=== PATIENT | female | born 1990 | race African-American/Black ===

== ENCOUNTER 2023-12-25 15:43 | Emergency (ER) | payer BC, SELFPAY ==
--- NOTE | ~2023-12-25 | XR_ITS ---
EXAM: XR hand LT min 3V, XR hand RT min 3V DATE: 12/25/2023 16:58 HISTORY: trauma . COMPARISON: None available. FINDINGS: Normal mineralization. No fracture or dislocation. No lytic or blastic lesion. Joint space s are maintained. No erosion or periosteal change. Soft tissues within normal limits. IMPRESSION: No acute osseous finding in the bilateral hands. Reviewed, dictated and finalized at location K. IMPRESSION: No acute osseous finding in the bilateral hands.
--- NOTE | ~2023-12-25 | XR_ITS ---
EXAM: XR knee LT 3V DATE: 12/25/2023 16:58 HISTORY: trauma . COMPARISON: None available. FINDINGS: Normal mineralization. No fracture or dislocation. No lytic or blastic lesion. Mild medial compartment narrowing. No erosion or periosteal change. Soft tissues within normal limits. IMPRESSION: No acute osseous finding in the left knee. Reviewed, dictated and finalized at location K.
[2023-12-25 15:54] VITALS: BP 140/90; PULSE 89; RESP 14; TEMP 37; O2SAT 97
--- NOTE | 2023-12-25 16:56 | ED.FALL ---
HPI - Fall General Chief Complaint: Fall Stated Complaint: fall Time Seen by Provider: 12/25/23 15:53 History of Present Illness HPI Narrative: 33-year-old female presents emergency department for evaluation after having a ground level fall. Patient reports she was walking down stairs quickly and tripped causing her to fall forward landing on her hands and knees. Patient does have contusions of her fingers and laceration to her left knee. Patient denies striking head denies any loss of consciousness. Related Data Allergies Allergy/AdvReac Type Severity Reaction Status Date / Time No Known Allergies Allergy Verified 12/25/23 15:44 Review of Systems Review of Systems: All systems reviewed & are unremarkable except as noted in HPI and below Exam Narrative: APPEARANCE: Well appearing, no pain, no distress, well-nourished. HEAD: normocephalic, atraumatic. EYES: PERRLA/EOMI, conjunctivae clear. NOSE: Normal no drainage EARS:TMS clear with good light reflex. THROAT: Pharynx clear, no exudate. NECK: Supple. No adenopathy, no masses. RESPIRATORY: Airway patent, respirations nonlabored. Clear to auscultation bilaterally, no rales, rhonchi, wheezing. CARDIOVASCULAR: Regular rate and rhythm without murmurs rubs or gallops. ABDOMINAL: Soft, nontender, nondistended, normal bowel sounds MUSCULOSKELETAL: Contusion to right thenar eminence and left middle finger NEURO: Alert. Cranial nerves II through XII intact. Good gait. Good coordination SKIN: Laceration to left knee Course Vital Signs Vital signs: Vital Signs Temperature 98.6 F 12/25/23 15:54 Pulse Rate 89 12/25/23 15:54 Respiratory Rate 14 12/25/23 15:54 Blood Pressure 140/90 12/25/23 15:54 Pulse Oximetry 97 12/25/23 15:54 Temperature 98.6 F 12/25/23 15:54 Pulse Rate 89 12/25/23 15:54 Respiratory Rate 14 12/25/23 15:54 Blood Pressure 140/90 12/25/23 15:54 Pulse Oximetry 97 12/25/23 15:54 Procedures Laceration Laceration 1: Time: 16:56 Site: lower extremity Side (If applicable): left Size (cm): 3 Description: linear Depth: simple, single layer Amount of anesthesia used (mL): 2 Pre-repair: wound explored, irrigated and irrigated extensively ====== Skin Level ====== Skin layer closed with: nylon Size (cm): 4-0 Number of sutures: 5 Technique: simple, interrupted ====== Subcutaneous Layer ====== ====== Muscle Layer ====== ====== Tendon Layer ====== MDM - Fall MDM Narrative Medical decision making narrative: 33-year-old female present to ED for evaluation for hand pain knee pain after a ground level fall. X-rays were negative for acute fracture dislocation. Laceration was repaired as described in the procedure note. All questions concerns were addressed. Patient was comfortable the plan for discharge and close follow-up. Differential Diagnosis Differential diagnosis: Likely other (Hand fracture, hand contusion, knee contusion, laceration) Imaging Data Radiologist's impression: Impressions Hand X-Ray 12/25/23 17:00 IMPRESSION: No acute osseous finding in the bilateral hands. Hand X-Ray 12/25/23 17:00 IMPRESSION: No acute osseous finding in the bilateral hands. Knee X-Ray 12/25/23 17:00 IMPRESSION: No acute osseous finding in the left knee. Discharge Plan Discharge Clinical Impression: Laceration Patient Disposition: Home, Self-Care Condition: Stable Instructions: Antibiotic Form, Laceration (ED), Abrasion (ED) Additional Instructions: Tylenol and ibuprofen for pain control. Sutures need to be removed in 7-10 days. Antibiotic ointment on abrasions. Have close follow-up with your primary care physician. Follow-up/Referrals: PHYSICIAN,INVOICING MACHINE OPERATOR [Non-Staff] -
== END 2023-12-25 18:07 | disposition home or self-care (01) ==
PROVIDERS: Emergency Provider Emergency Medicine
DX: S81.012A Laceration without foreign body, left knee, initial encounter (principal); S60.032A Contusion of left middle finger without damage to nail, initial encounter; W10.9XXA Fall (on) (from) unspecified stairs and steps, initial encounter
CPT/HCPCS: 12002; 73130; 73562; 99284

== ENCOUNTER 2024-01-12 13:01 | Emergency (ER) | payer BC, SELFPAY ==
[2024-01-12 13:02] VITALS: BP 132/79; PULSE 75; RESP 16; TEMP 37.4; O2SAT 99
--- NOTE | 2024-01-12 14:51 | PC.NURSE ---
PT LWBS, WILL COME BACK IF NEEDED PER THE PT
== END 2024-01-12 15:03 | disposition left against medical advice (07) ==
LOC: ANHED 14:54
DX: O26.891 Other specified pregnancy related conditions, first trimester (principal); R10.9 Unspecified abdominal pain
CPT/HCPCS: 99199

== ENCOUNTER 2024-04-05 03:28 | Emergency (ER) | payer BC, SELFPAY ==
[2024-04-05 03:37] VITALS: O2SAT 100
[2024-04-05 03:41] VITALS: BP 136/83; PULSE 83; RESP 16; O2SAT 100
--- NOTE | 2024-04-05 04:16 | ED_ITS ---
HPI - General Adult General Chief complaint: Head Injury Stated complaint: ground level fall around 2129 Time Seen by Provider: 04/05/24 03:47 History of Present Illness HPI narrative: patient 34-year-old female who presents emergency department with chief complaint of facial laceration. The patient reports that she had a ground level fall today and reports she was seen at this [facility] emergency department patient had a CT scan but did not wait to have her laceration repaired. The patient states that she is back to her baseline neurological status has no more nausea reports she stays have her laceration repaired. Related Data Allergies Allergy/AdvReac Type Severity Reaction Status Date / Time No Known Allergies Allergy Verified 12/25/23 15:44 Review of Systems Review of Systems: A 10 system review of systems was completed on the patient and is negative except for what is stated in the HPI. Nursing and ancillary documentation was reviewed. Exam Narrative: GENERAL: Well-appearing, well-nourished, and in no acute distress. HEAD: Normocephalic, 3 cm laceration to the left eyebrow. EYES: PERRLA and EOMI. ENT: Nares clear, no rhinorrhea or epistaxis. Mucous membranes moist. NECK: Supple. CHEST: Clear to auscultation. No respiratory distress. HEART: Regular rate and rhythm. No murmur heard. Normal peripheral pulses. ABDOMEN: Soft, nontender, nondistended, normal active bowel sounds. EXTREMITIES: Normal range of motion. No edema. SKIN: Warm, dry, no rash. NEURO: No focal deficits. Alert and oriented x3. PSYCH: Normal mood and affect. Course Vital Signs Vital signs: Vital Signs Pulse Oximetry 100 04/05/24 03:37 Oxygen Delivery Room Air 04/05/24 03:37 Pulse Rate 83 04/05/24 03:41 Respiratory Rate 16 04/05/24 03:41 Blood Pressure 136/83 04/05/24 03:41 Pulse Oximetry 100 04/05/24 03:41 Oxygen Delivery Room Air 04/05/24 03:37 Procedures Laceration Laceration 1: Date: 04/05/24 Time: 04:17 Site: face ( left eyebrow) Size (cm): 3 Description: linear Depth: simple, single layer Local Anesthetic: lidocaine 1% and with epi Amount of anesthesia used (mL): 3 Pre-repair: wound explored and irrigated ====== Skin Level ====== Skin layer closed with: prolene Size (cm): 5-0 Number of sutures: 5 Technique: simple, interrupted ====== Subcutaneous Layer ====== ====== Muscle Layer ====== ====== Tendon Layer ====== Medical Decision Making MDM Narrative Medical decision making narrative: differential diagnosis includes head injury, facial laceration. Patient is currently and heart tones were within normal limits. The patient had a CT head done had a outlying facility the laceration was repaired Vital Signs Vital Signs: Vital Signs Pulse Oximetry 100 04/05/24 03:37 Oxygen Delivery Room Air 04/05/24 03:37 Pulse Rate 83 04/05/24 03:41 Respiratory Rate 16 04/05/24 03:41 Blood Pressure 136/83 04/05/24 03:41 Pulse Oximetry 100 04/05/24 03:41 Oxygen Delivery Room Air 04/05/24 03:37 Discharge Plan Discharge Clinical Impression: Face lacerations, Head injury Patient Disposition: Home, Self-Care Condition: Stable Instructions: Antibiotic Form, Care For Your Stitches (ED), Head Injury (ED), Facial Laceration (ED) Additional Instructions: please have the sutures removed in 5-7 days please return if you develop signs of infection Follow-up/Referrals: Talon Bain MD [Physician] - UNKNOWN,DOCTOR [Primary Care Provider] - Time of Disposition: 04:20
== END 2024-04-05 04:42 | disposition home or self-care (01) ==
PROVIDERS: Emergency Provider Emergency Medicine
DX: O9A.212 Injury, poisoning and certain other consequences of external causes complicating pregnancy, second trimester (principal); S01.112A Laceration without foreign body of left eyelid and periocular area, initial encounter; Z3A.18 18 weeks gestation of pregnancy; W18.30XA Fall on same level, unspecified, initial encounter
CPT/HCPCS: 12013; 99283; J2004

== ENCOUNTER 2024-07-05 11:26 | Observation (INO) | payer BC, SELFPAY ==
[2024-07-05] VITALS (8 sets, daily range): BP systolic 108–151; BP diastolic 56–108; PULSE 54–91; RESP 19; O2SAT 100; BMI 38.5
--- NOTE | ~2024-07-05 | US_ITS ---
EXAMINATION: US abdomen limited DATE: 07/05/2024 13:11 INDICATION: Right upper quadrant abdominal pain, nausea and vomiting. TECHNIQUE: Multiple grayscale and Doppler ultrasound images of the abdomen were obtained. COMPARISON: None FINDINGS: The pancreatic head and body are normal in appearance. The pancreatic tail is not visualized. Visual ized proximal to mid inferior vena cava is normal. Liver has normal echogenicity and contour, with a smooth surface. No liver lesion identified. No intrahepatic biliary duct dilation suspected. Portal v enous flow was seen in the hepatopetal, normal direction and has normal Doppler waveform. Multiple sh adowing gallstones in the dependent aspect of the otherwise normal-appearing gallbladder. Common bile duct is normal measuring 4 mm in maximal diameter. Sonographic Copeland sign was reported as negative by the senior civil engineer.Visualized portion of the right kidney demonstrates normal contour and echogenicit y with no hydronephrosis. IMPRESSION: 1. Cholelithiasis without evident biliary obstruction or findings of acute cholecystitis. Reviewed, dictated and finalized at location A. T LEAD IMPRESSION: 1. Cholelithiasis without evident biliary obstruction or findings of acute chol ecystitis.
--- OUTSIDE RECORDS SUMMARY | 2024-07-05 11:29 | XMS_ITS | Clinical Summary ---
Author Organization [facility] [employer] Address [address] [place] [address] Care Team Providers Care Manager Pipeline Name Role Phone Unavailable Primary Care Provider Unavailabl e Source Comments [facility],non-owned Affiliates and Associated Physician Practices is amultiple site organization consisting of ambulatory clinics and hospital sitesin [place], [place], [place] and [place]. This disclosure is being madepursuant to the Care Everywhere program and may not contain all information available regarding this patient. Last updated 18.SL [facility] [place] Allergies No known active allergies Encounters Date Type Department Care Team Description 04/04/2024 11:24 PM STOREPERSON - 04/05/2024 5:01 AM STOREPERSON Emergency [facility] [address] [place] [id number] Fall, initial encounter Discharge Disposition: Left Against Medical Advice/Discontinued Care 04/04/2024 Travel from Last 3 Months Social History Tobacco Use Types Packs/Day Years Used Date Smoking Tobacco: Never Assessed Sex and Gender Information Value Date Recorded Sex Assigned at Not on file Gender Identity Not on file Sexual Orientation Not on file Last Filed Vital Signs Vital Sign Reading Time Taken Comments Blood Pressure 132/101 04/04/2024 11:26 PM STOREPERSON Pulse 106 04/04/2024 11:26 PM STOREPERSON Temperature 36.7 C (98 F) 04/04/2024 11:26 PM STOREPERSON Respiratory Rate 22 04/04/2024 11:26 PM STOREPERSON Oxygen Saturation 97% 04/04/2024 11:26 PM STOREPERSON Inhaled Oxygen Concentration - - Weight 115.7 kg (255 lb) 04/04/2024 11:26 PM STOREPERSON Height 172.7 cm (5' 8 ) 04/04/2024 11:26 PM STOREPERSON Body Mass Index 38.77 04/04/2024 11:26 PM STOREPERSON Plan of Treatment Health Maintenance Due Date Last Done Comments PAP SMEAR 1991 HIV SCREENING 2006 HEPATITIS C SCREENING 03/04/2009 DTAP/TDAP/TD VACCINES (1 - Tdap) 2010 HEPATITIS B VACCINE (1 of 3 - 19+ 3-dose series) 2010 COVID-19 VACCINE (1 - 2023-2 5 season) 2024 INFLUENZA VACCINE (#1) 2024 DEPRESSION SCREENING 05/21/2024 ZOSTER VACCINE (1 of 2) 2041 HIB VACCINE Aged Out No longer eligi ble based on patient's age to complete this topic HPV VACCINE Aged Out No longer eligi ble based on patient's age to complete this topic MENINGOCOCCAL (Group B) VACCINE Aged Out No longer eligible based on patient's age to complete this topic MENINGOCOCCAL VACCINE Aged Out No basilio elizabeth eligible based on patient's age to complete this topic PNEUMOCOCCAL VACCINE Aged Out No long er eligible based on patient's age to complete this topic Procedures Procedure Name Priority Date/Time Associated Diagnosis Comments CT ORBITS WO CONTRAST STAT 04/05/2024 1:54 AM STOREPERSON Fall, initial encounter CT HEAD WO CONTRAST STAT 04/05/2024 1 :54 AM STOREPERSON Fall, initial encounter COMPREHENSIVE METABOLIC PANEL STAT 04/05/2024 12:13 AM STOREPERSON CBC W AUTO DIFFERENTIAL STAT 04/05/2024 12:13 AM STOREPERSON HCG URINE QUALITATIVE STAT 04/05/2024 12:13 AM STOREPERSON from Last 3 Months Results * CT Orbits Wo Contrast (04/05/2024 1:54 AM STOREPERSON) Anatomical Region Laterality Modality Head Computed Tomogra phy 04/05/2024 2:06 AM STOREPERSON Impressions 04/05/2024 7:24 AM STOREPERSON IMPRESSION: 1.Proptotic globes bilaterally. No orbital fracture or retrobulbar hematoma is identified. > Dictated by Andre Garcia, DO (residential director). Lorena Garcia MD have personally reviewed and interpreted this examination/study. > Interpreting Provider: Lorena Cantu MD on 04/05/2024 7:24 AM Narrative 04/05/2024 7:24 AM STOREPERSON EXAMINATION: CT ORBITS WO CONTRAST DATE/TIME OF EXAM: 04/05/2024 1:55 AM, LOCATION [facility] HISTORY: W19.XXXA: Fall, initial encounter ?orbit fracture, vision change (20/50 in left eye with laceration, fall) COMPARISON: No prior study is available for comparison. FINDINGS: Mildly proptotic globes bilaterally. No orbital fracture is identified. No retrobulbar hematoma. No radiodense foreign bodies are identified in the orbits. There is mild paranasal sinus disease. There is a mucous retention cyst in the left maxillary sinus. The nasal septum is mildly limited to the right. No acute fracture of the visualized facial bones. The middle ear cavities and mastoid air cells are clear. No soft tissue abnormality is identified. Procedure Note Lorena Cantu MD - 04/05/2024 EXAMINATION: CT ORBITS WO CONTRAST DATE/TIME OF EXAM: 04/05/2024 1:55 AM, LOCATION [facility] HISTORY: W19.XXXA: Fall, initial encounter ?orbit fracture, visionchange (20/50 in left eye with laceration, fall) COMPARISON: No prior study is available for comparison. FINDINGS: Mildly proptotic globes bilaterally. No orbital fracture is identified.No retrobulbar hematoma. No radiodense foreign bodies are identified in the orbits. There is mild paranasal sinus disease. There is a mucousretention cyst in the left maxillary sinus. The nasal septum is mildly limited tothe right. No acute fracture of the visualized facial bones. The middle ear cavities and mastoid air cells are clear. No soft tissue abnormality is identified. IMPRESSION: 1.Proptotic globes bilaterally. No orbital fracture or retrobulbarhematoma is identified. > Dictated by Andre Garcia DO (residential director). Lorena Garcia MD have personally reviewed and interpretedthis examination/study. > Interpreting Provider: Lorena Cantu MD on 04/05/2024 7:24 AM Qiana Martin MD CT ORDERABLES * CT Head Wo Contrast (04/05/2024 1:54 AM STOREPERSON) Anatomical Region Laterality Modality Head Computed Tomogra phy 04/05/2024 1:57 AM STOREPERSON Impressions 04/05/2024 7:22 AM STOREPERSON IMPRESSION: 1.No acute intracranial hemorrhage, midline shift, or significant mass effect. > Dictated by Andre Garcia DO (Newspaper Photographer), 04/05/2024 2:05 AM. ILorena MD have personally reviewed and interpreted this examination/study. > Interpreting Provider: Lorena Cantu MD on 04/05/2024 7:22 AM Narrative 04/05/2024 7:22 AM STOREPERSON PROCEDURE: CT HEAD WO CONTRAST, DATE/TIME OF EXAM: 04/05/2024 1:55 AM, LOCATION [facility] INDICATION: W19.XXXA: Fall, initial encounter EXAMINATION: Computed tomography (CT) of the head without contrast ADDITIONAL CLINICAL INFORMATION: Ordering Provider Reason For Exam: ?ICH TECHNIQUE: CT of the head was performed without contrast according to standard protocol. CT dose reduction technique was used, including Automated Exposure Control. COMPARISON: No prior study is available for comparison at the time of this dictation. FINDINGS: No acute intra- or extra-axial fluid collections are identified. Subjective minimal prominence of the ventricles. The ventricles are otherwise normal in shape and morphology. The basilar cisterns are patent. No mass effect or midline shift is seen. The garcia-white matter differentiation is normal. No acute calvarial fracture is identified. The orbits appear normal. The paranasal sinuses are clear. The mastoid air cells are clear. No soft tissue abnormality is identified. Brain injury guidelines: Skull fracture: No Subdural hematoma: No subdural hematoma. Epidural hematoma: No epidural hematoma. Intraparenchymal hemorrhage: No intraparenchymal hemorrhage. Subarachnoid hemorrhage: No subarachnoid hemorrhage. Intraventricular hemorrhage: No. Midline shift: No. Procedure Note Lorena Cantu MD - 04/05/2024 PROCEDURE: CT HEAD WO CONTRAST, DATE/TIME OF EXAM: 04/05/2024 1:55 AM, LOCATION [facility] INDICATION: W19.XXXA: Fall, initial encounter EXAMINATION: Computed tomography (CT) of the head without contrast ADDITIONAL CLINICAL INFORMATION: Ordering Provider Reason For Exam: ?ICH TECHNIQUE: CT of the head was performed without contrast according to standard protocol. CT dose reduction technique was used, including Automated Exposure Control. COMPARISON: No prior study is available for comparison at the time ofthis dictation. FINDINGS: No acute intra- or extra-axial fluid collections are identified.Subjective minimal prominence of the ventricles. The ventricles are otherwisenormal in shape and morphology. The basilar cisterns are patent. No mass effector midline shift is seen. The garcia-white matter differentiation is normal.No acute calvarial fracture is identified. The orbits appear normal. The paranasal sinuses are clear. The mastoid air cells are clear. No soft tissue abnormality is identified. Brain injury guidelines: Skull fracture: No Subdural hematoma: No subdural hematoma. Epidural hematoma: No epidural hematoma. Intraparenchymal hemorrhage: No intraparenchymal hemorrhage. Subarachnoid hemorrhage: No subarachnoid hemorrhage. Intraventricular hemorrhage: No. Midline shift: No. IMPRESSION: 1.No acute intracranial hemorrhage, midline shift, or significant mass effect. > Dictated by Andre Garcia DO (Newspaper Photographer), 04/05/2024 2:05AM. ILorena MD have personally reviewed and interpretedthis examination/study. > Interpreting Provider: Lorena Cantu MD on 04/05/2024 7:22 AM Qiana Martin MD CT ORDERABLES * (ABNORMAL) HCG URINE QUALITATIVE (04/05/2024 12:13 AM STOREPERSON) Test Urine Positive(A ) Negative 04/05/2024 12:29 AM STOREPERSON [facility] Urine URINE / Unknown Collection / Unknown 04/05/2024 12:13 AM STOREPERSON 04/05/2024 12:19 AM STOREPERSON Tong Castaneda MD LAB - URINALYSIS ORD ERABLES [facility] [address] [place] [address] [phone] * (ABNORMAL) CBC W AUTO DIFFERENTIAL (04/05/2024 12:13 AM [facility]) WBC 11.8(H) 4.0 - 10.7 x10E9/L 04/05/2024 12:29 AM [facility] RBC Count 3.86(L) 3.90 - 5.20 x10E12/L 04/05/2024 12:29 AM [facility] Hemoglobin 10.8(L) 11.9 - 15.8 g/dL 04/05/2024 12:29 AM [facility] Hematocrit 32.0(L) 34.8 - 46.1 % 04/05/2024 12:29 AM [facility] MCV 82.9 80.0 - 98.0 fL 04/05/2024 12:29 AM [facility] MCH 28.0 26.7 - 33.6 pg 04/05/2024 12:29 AM [facility] MCHC 33.8 31.7 - 36.3 g/dL 04/05/2024 12:29 AM [facility] RDW-CV 13.1 11.3 - 14.8 % 04/05/2024 12:29 AM [facility] Platelet Count 406 150 - 420 x10E9/L 04/05/2024 12:29 AM [facility] MPV 9.0 7.8 - 11.4 fL 04/05/2024 12:29 AM [facility] Neutrophil % 72.1 41.0 - 74.0 % 04/05/2024 12:29 AM [facility] Lymphocyte % 18.0 17.0 - 47.0 % 04/05/2024 12:29 AM [facility] Monocyte % 8.1 3.0 - 11.0 % 04/05/2024 12:29 AM [facility] Eosinophil % 1.1 0.0 - 7.0 % 04/05/2024 12:29 AM [facility] Basophil % 0.3 0.0 - 1.6 % 04/05/2024 12:29 AM [facility] Immature Granulocytes % 0.4 0.0 - 1.0 % 04/05/2024 12:29 AM [facility] Neutrophil Absolute 8.52(H) 1.60 - 7.50 x10E9/L 04/05/2024 12:29 AM [facility] Lymphocyte Absolute 2.12 1.00 - 4.40 x10E9/L 04/05/2024 12:29 AM [facility] Monocyte Absolute 0.95 0.15 - 1.00 x10E9/L 04/05/2024 12:29 AM [facility] Eosinophil Absolute 0.13 0.00 - 0.60 x10E9/L 04/05/2024 12:29 AM [facility] Basophil Absolute 0.03 0.00 - 0.13 x10E9/L 04/05/2024 12:29 AM [facility] Blood BLOOD SPECIMEN / Unknown Venipuncture / Unknown 04/05/2024 12:13 AM [facility] 04/05/2024 12:21 AM [facility] Tong Castaneda MD LAB - HEMATOLOGY ORD ERABLES [facility] [address] [place] [id number], [facility] [phone] * (ABNORMAL) COMPREHENSIVE METABOLIC PANEL (04/05/2024 12:13 AM [facility]) BUN 6(L) 7 - 26 mg/dL 04/05/2024 12:48 AM [facility] Creatinine 0.59 0.56 - 0.96 mg/dL 04/05/2024 12:48 AM [facility] Sodium 138 136 - 145 mmol/L 04/05/2024 12:48 AM [facility] Potassium 3.6 3.5 - 4.5 mmol/L 04/05/2024 12:48 AM [facility] Chloride 107 98 - 107 mmol/L 04/05/2024 12:48 AM [facility] CO2 23 22 - 29 mmol/L 04/05/2024 12:48 AM [facility] Glucose 89 70 - 99 mg/dL 04/05/2024 12:48 AM [facility] Calcium 9.3 8.4 - 10.2 mg/dL 04/05/2024 12:48 AM [facility] Protein Total 7.5 6.0 - 8.3 g/dL 04/05/2024 12:48 AM [facility] Albumin 3.4 3.4 - 5.0 g/dL 04/05/2024 12:48 AM [facility] Bilirubin Total 0.2 0.2 - 1.2 mg/dL 04/05/2024 12:48 AM [facility] Alkaline Phosphatase 61 40 - 150 U/L 04/05/2024 12:48 AM [facility] ALT 21 5 - 55 U/L 04/05/2024 12:48 AM [facility] AST 18 5 - 34 U/L 04/05/2024 12:48 AM [facility] Anion Gap 8 6 - 16 04/05/2024 12:48 AM [facility] BUN/Creatinine Ratio 10 7 - 23 04/05/2024 12:48 AM [facility] Osmolality Calculated 283 275 - 295 mOsm/kg 04/05/2024 12:48 AM [facility] Albumin/Globulin Ratio 0.8(L) 1.1 - 2.3 04/05/2024 12:48 AM [facility] eGFR by CKD-EPI >90 >=90 mL/min/1.7 3 m2 04/05/2024 12:48 AM [facility] Blood BLOOD SPECIMEN / Unknown Venipuncture / Unknown 04/05/2024 12:13 AM [facility] 04/05/2024 12:21 AM [facility] Tong Castaneda MD LAB - CHEMISTRY ORDE SHAR[facility] Organization Address City/State/ZIP Co de Phone Number [facility] [address] [place] [address], [facility] [phone] from [address] [place] [address] Melissa Menendez Personal/Family Self 1990
--- OUTSIDE RECORDS SUMMARY | 2024-07-05 11:29 | XMS_ITS | Patient Health Summary ---
Author Organization [facility] [employer] Address [address] [place] [address] Care Team Providers Care Client Leader Name Role Phone Unavailable Primary Care Provider Unavailabl e Note from [facility],non-owned Affiliates and Associated Physician Practices is amultiple site organization consisting of ambulatory clinics and hospital sitesin [place], [place], [place] and [place]. This disclosure is being madepursuant to the Care Everywhere program and may not contain all information available regarding this patient. Last updated 18.[facility] Allergies No known active allergies Social History Tobacco Use Types Packs/Day Years Used Date Smoking Tobacco: Never Assessed Sex and Gender Information Value Date Recorded Sex Assigned at Not on file Gender Identity Not on file Sexual Orientation Not on file Last Filed Vital Signs Vital Sign Reading Time Taken Comments Blood Pressure 132/101 04/04/2024 11:26 PM [employer] Pulse 106 04/04/2024 11:26 PM [employer] Temperature 36.7 C (98 F) 04/04/2024 11:26 PM [employer] Respiratory Rate 22 04/04/2024 11:26 PM [employer] Oxygen Saturation 97% 04/04/2024 11:26 PM [employer] Inhaled Oxygen Concentration - - Weight 115.7 kg (255 lb) 04/04/2024 11:26 PM [employer] Height 172.7 cm (5' 8 ) 04/04/2024 11:26 PM [employer] Body Mass Index 38.77 04/04/2024 11:26 PM [employer] Procedures * CT ORBITS WO CONTRAST(Performed 04/05/2024) Performed for Fall, initial encounter * CT HEAD WO CONTRAST(Performed 04/05/2024) Performed for Fall, initial encounter * COMPREHENSIVE METABOLIC PANEL(Performed 04/05/2024) * CBC W AUTO DIFFERENTIAL(Performed 04/05/2024) * HCG URINE QUALITATIVE(Performed 04/05/2024) Results * CT Orbits Wo Contrast (04/05/2024 1:54 AM [facility]) Anatomical Region Laterality Modality Head Computed Tomogra phy 04/05/2024 2:06 AM [employer] Impressions 04/05/2024 7:24 AM [employer] IMPRESSION: 1.Proptotic globes bilaterally. No orbital fracture or retrobulbar hematoma is identified. > Dictated by Andre Garcia DO (residential aide). ILorena MD have personally reviewed and interpreted this examination/study. > Interpreting Provider: Lorena Cantu MD on 04/05/2024 7:24 AM Narrative 04/05/2024 7:24 AM [employer] EXAMINATION: CT ORBITS WO CONTRAST DATE/TIME OF EXAM: 04/05/2024 1:55 AM, LOCATION [facility] HISTORY: W19.XXXA: Fall, initial encounter ?orbit fracture, [...] DATE/TIME OF EXAM: 04/05/2024 1:55 AM, LOCATION [facility] HISTORY: W19.XXXA: Fall, initial encounter ?orbit fracture, [...] > Dictated by Andre Garcia DO (residential aide). Lorena Garcia MD have personally reviewed and interpretedthis examination/study. > Interpreting Provider: Lorena Cantu MD on 04/05/2024 7:24 AM Qiana Martin MD CT ORDERABLES * CT Head Wo Contrast (04/05/2024 1:54 AM [employer]) Anatomical Region Laterality Modality Head Computed Tomogra phy 04/05/2024 1:57 AM [employer] Impressions 04/05/2024 7:22 AM [employer] IMPRESSION: 1.No acute intracranial hemorrhage, midline shift, or significant mass effect. > Dictated by Andre Garcia DO (Manganese Breaker), 04/05/2024 2:05 AM. Lorena Garcia MD have personally reviewed and interpreted this examination/study. > Interpreting Provider: Lorena Cantu MD on 04/05/2024 7:22 AM Narrative 04/05/2024 7:22 AM [employer] PROCEDURE: CT HEAD WO CONTRAST, DATE/TIME OF EXAM: 04/05/2024 1:55 AM, LOCATION [facility] INDICATION: W19.XXXA: Fall, initial encounter EXAMINATION: Computed [...] DATE/TIME OF EXAM: 04/05/2024 1:55 AM, LOCATION [facility] INDICATION: W19.XXXA: Fall, initial encounter EXAMINATION: Computed [...] effect. > Dictated by Andre Garcia DO (Manganese Breaker), 04/05/2024 2:05AM. Lorena Garcia MD have personally reviewed and interpretedthis examination/study. > Interpreting Provider: Lorena Cantu MD on 04/05/2024 7:22 AM Qiana Martin MD CT ORDERABLES * (ABNORMAL) HCG URINE QUALITATIVE (04/05/2024 12:13 AM [employer]) Test Urine Positive(A ) Negative 04/05/2024 12:29 AM [facility] Urine URINE / Unknown Collection / Unknown 04/05/2024 12:13 AM [facility] [facility] 04/05/2024 12:19 AM [employer] Tong Castaneda MD LAB - URINALYSIS ORD ERABLES [facility] [address] [place] [address], [facility] [phone] * (ABNORMAL) CBC W AUTO DIFFERENTIAL (04/05/2024 12:13 AM [facility]) Pathologist [facility] WBC 11.8(H) 4.0 - 10.7 x10E9/L 04/05/2024 12:29 AM [facility] RBC Count 3.86(L) 3.90 - 5.20 x10E12/L 04/05/2024 12:29 AM [facility] Hemoglobin 10.8(L) 11.9 - 15.8 g/dL 04/05/2024 12:29 AM [facility] Hematocrit 32.0(L) 34.8 - 46.1 % 04/05/2024 12:29 AM [facility] MCV 82.9 80.0 - 98.0 fL 04/05/2024 12:29 AM [facility] MCH 28.0 26.7 - 33.6 pg 04/05/2024 12:29 AM [facility] MCHC 33.8 31.7 - 36.3 g/dL 04/05/2024 12:29 AM [facility] RDW-CV 13.1 11.3 - 14.8 % 04/05/2024 12:29 AM [facility] Platelet Count 406 150 - 420 x10E9/L 04/05/2024 12:29 AM [facility] MPV 9.0 7.8 - 11.4 fL 04/05/2024 12:29 AM [facility] Neutrophil % 72.1 41.0 - 74.0 % 04/05/2024 12:29 AM [facility] Lymphocyte % 18.0 17.0 - 47.0 % 04/05/2024 12:29 AM [facility] Monocyte % 8.1 3.0 - 11.0 % 04/05/2024 12:29 AM [facility] Eosinophil % 1.1 0.0 - 7.0 % 04/05/2024 12:29 AM [facility] Basophil % 0.3 0.0 - 1.6 % 04/05/2024 12:29 AM [facility] Immature Granulocytes % 0.4 0.0 - 1.0 % 04/05/2024 12:29 AM [facility] Neutrophil Absolute 8.52(H) 1.60 - 7.50 x10E9/L 04/05/2024 12:29 AM [facility] Lymphocyte Absolute 2.12 1.00 - 4.40 x10E9/L 04/05/2024 12:29 AM [facility] Monocyte Absolute 0.95 0.15 - 1.00 x10E9/L 04/05/2024 12:29 AM [facility] Eosinophil Absolute 0.13 0.00 - 0.60 x10E9/L 04/05/2024 12:29 AM [facility] Basophil Absolute 0.03 0.00 - 0.13 x10E9/L 04/05/2024 12:29 AM [facility] Blood BLOOD SPECIMEN / Unknown Venipuncture / Unknown 04/05/2024 12:13 AM [facility] 04/05/2024 12:21 AM [facility] Tong Castaneda MD LAB - HEMATOLOGY ORD ERABLES [facility] [address] [place] [id number], [facility] [phone] * (ABNORMAL) COMPREHENSIVE METABOLIC PANEL (04/05/2024 12:13 AM [facility]) BUN 6(L) 7 - 26 mg/dL 04/05/2024 12:48 AM [facility] Creatinine 0.59 0.56 - 0.96 mg/dL 04/05/2024 12:48 AM [facility] Sodium 138 136 - 145 mmol/L 04/05/2024 12:48 AM [facility] Potassium 3.6 3.5 - 4.5 mmol/L 04/05/2024 12:48 AM [facility] Chloride 107 98 - 107 mmol/L 04/05/2024 12:48 AM [facility] CO2 23 22 - 29 mmol/L 04/05/2024 12:48 AM [facility] Glucose 89 70 - 99 mg/dL 04/05/2024 12:48 AM [facility] Calcium 9.3 8.4 - 10.2 mg/dL 04/05/2024 12:48 AM [facility] Protein Total 7.5 6.0 - 8.3 g/dL 04/05/2024 12:48 AM [facility] Albumin 3.4 3.4 - 5.0 g/dL 04/05/2024 12:48 AM [facility] Bilirubin Total 0.2 0.2 - 1.2 mg/dL 04/05/2024 12:48 AM [facility] Alkaline Phosphatase 61 40 - 150 U/L 04/05/2024 12:48 AM [facility] ALT 21 5 - 55 U/L 04/05/2024 12:48 AM [facility] AST 18 5 - 34 U/L 04/05/2024 12:48 AM [facility] Anion Gap 8 6 - 16 04/05/2024 12:48 AM [facility] BUN/Creatinine Ratio 10 7 - 23 04/05/2024 12:48 AM [facility] Osmolality Calculated 283 275 - 295 mOsm/kg 04/05/2024 12:48 AM [facility] Albumin/Globulin Ratio 0.8(L) 1.1 - 2.3 04/05/2024 12:48 AM [facility] eGFR by CKD-EPI >90 >=90 mL/min/1.7 3 m2 04/05/2024 12:48 AM [facility] Blood BLOOD SPECIMEN / Unknown Venipuncture / Unknown 04/05/2024 12:13 AM [facility] [facility] 04/05/2024 12:21 AM [facility] Tong Castaneda MD LAB - CHEMISTRY [facility] Organization Address City/State/ZIP Co de Phone Number [address] [address], [facility] [phone]
--- OUTSIDE RECORDS SUMMARY | 2024-07-05 11:29 | XMS_ITS | Clinical Summary ---
Author Organization [facility] [address] Address [address] [place] [address] Care Team Providers Care Flash Welding Machine Operator Name Role Phone Unknown, Notinfile Primary Care Provider Unavail able Allergies Active Allergy Reactions Criticality Noted Date Comments Sertraline Other (See comments) Low 02/15/2021 Negative thoughts Active Problems Problem Noted Date Diagnosed Date Supervision of other normal , antepartu m 01/16/2024 Overview (01/16/2024): -migraines -essential HTN (elevated Bps in clinic setting) -anxiety/depression-buspar -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 Expectant management: [] Mode of delivery: [] For C/S bottle of CHG 4% and hand out provided @ 36wks Teaching: [] 1st visit [] 28-30 week [] 36 week Bilateral low back pain without sciatica 023 Overview (01/16/2024): Noticed more the last few months. Pain in the middle of her lower back bilaterally. Feels like it shoots across her back from one side to the other, does not shoot down legs. She knows that her increase in weight could be contributing. No tenderness at SI joints. Has not tried anything for it yet. Gave Care of the Back Book today and recommended gently stretching exercises. Okay to use heat and Tylenol, ibuprofen as long as limited use and not . Consider PT if not improving over the next month. Elevated BP without diagnosis of hypertension Overview (01/16/2024): 06/06/2023: Blood pressure is still in the 130s/70s even on recheck today. Denies any headaches, vision changes, chest pain, shortness for breath, palpitations, edema. Discussed that we would recommend starting a blood pressure medication as she has had more than 2 blood pressures at separate appointments which have been elevated in clinic. She states she has had difficulty picking up her blood pressure machine at [facility], so sent a new blood pressure machine in today. Discussed that home blood pressures tend to be the most accurate as some people can be anxious when in the clinic setting, and are more relaxed at home. She discusses that she does feel less stressed and more calm after finishing school and moving. However, she has not been able to work on diet and weight loss as much she has wanted. She would like the opportunity to work on some of these things 1st, then return and if blood pressures are still consistently in the 130s/80s would be willing to start medication. They are currently trying to conceive so would need to start medication that is safe for . Return in 4 weeks for blood pressure check. 05/08/2023 : Blood pressure is elevated today in clinic but she recognizes she is anxious for this visit with the PAP. She was not able to worm picker the BP cuff previously but is now done with school so will plan to pick it up this week. They are still in the process of moving to [facility] the middle of May but states she will likely continue care at [facility]. She will bring repeat blood pressures to appointment in about 3 weeks to evaluate. Will also work on diet and weight loss. If consistently above 130s/80s will start BP medication. Blood pressure is elevated today in clinic and remained slightly elevated even on recheck. Discussed with patient that she is had multiple stressors in the last 2 months and she recognizes that these can raise her blood pressure. Discussed that NSAIDs like ibuprofen can also raise blood pressure. Blood pressure monitor for home prescribed to [employer], and instructions given to take blood pressure at the same time of day for the next few weeks. Patient will bring these into next appointment and if consistently 130/80 or higher we will discuss starting blood pressure medication. Morbid obesity due to excess calories 09/22/2022 Overview (01/16/2024): Wt Readings from Last 6 Encounters: 06/05/23 116.8 kg (257 lb 6.4 oz) 05/08/23 117.2 kg (258 lb 6.4 oz) 04/10/23 116 kg (255 lb 12.8 oz) 12/28/22 109.8 kg (242 lb) 09/22/22 111.1 kg (245 lb) 08/28/22 109.8 kg (242 lb) Given education on diet and exercise. Discussed including good proteins and fats with meals to help keep her full longer. Reviewed basics of Mediterranean diet. Moderate episode of recurrent major depressive d isorder 07/31/2022 Overview (01/16/2024): patient does not feel sad. However she does have feelings of lack of interest. She reports feeling tired and fatigued, reports psychomotor agitation, has sleep disturbances and appetite disturbances. She denies any suicidal, homicidal ideations. Given lack of interest, anhedonia, diagnosis of depression is apparent. Treatment with SSRI will help with anxiety and depression management. Marijuana abuse 05/09/2022 Lumbar degenerative disc disease 02/21/2021 Generalized anxiety disorder 02/01/2021 Overview (01/16/2024): Update. 12/28/2022 : She reports that after using Lexapro 10 mg, her anxiety has become worse. She does not want to use this medication. We will switch her over to buspirone and see how she responds Update. July 31. Patient reports 10% improvement after starting 5 mg of Lexapro. No side effects reported. Keeping this in mind, will advise her to increase the dose to 10 mg daily. Additionally, referral to psychiatry has been placed. Has been having difficulty controlling her anger. Anxiety screening as below. Uses marijuana to self medicate. Recently got a pet dog. That seems to help as a emotional support animal. Given the positive screening below, will initiate treatment with Lexapro and see how she responds. 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 Wanted tested herself but never has had breakout. Discussed positive result. Will not treat at this point. Comments Yes Immunizations Name Administration Dates Next Due DTaP 10/14/1996,09/10/1992 Hep B, Adolescent or Pediatric 03/04/1997,1996,03/12/1995 Hib (PRP-T) 07/02/1992,1991,1991 ,1991 MMR 10/14/1996,07/02/1992 Meningococcal MCV4P (Menactra) 12/21/2004 OPV 10/14/1996, 3,1991,1991,0 1991 TD Preservative Free 12/21/2004 Tdap 04/04/2022 Social History Tobacco Use Types Packs/Day Years Used Date Smoking Tobacco: Never Assessed Personal Safety Answer Date Recorded Have you ever been in or are you currently in a harmful physical or emotional relationship or is someone making you feel afraid or unsafe? Denies 12/18/2023 Comments Yes Sex and Gender Information Value Date Recorded Sex Assigned at Not on file Legal Sex Female 3:51 PM CDT Gender Identity Not on file Sexual Orientation Not on file Obstetrics History Para Term AB IAB SAB Ectopic Multiple Livin g Live Births 3 2 1 1 Date Outcome GA Total Labor Labor/2nd/3rd Weight Sex Type Anes PTL Melissa A1 A5 Name Clin 10/2016 IAB 07/2023 SAB Current Summary Episode Dates Number of Fetuses Estimated Date of Delivery 01/16/2024 - Present (07/05/2024) Unknown Dating Summary Based On BETTIE [place] Diff Last Menstrual Period on 12/01/2023 09/06/2024 Last Filed Vital Signs Vital Sign Reading Time Taken Comments Blood Pressure 150/110 12/18/2023 1:30 PM CDT Pulse 76 12/18/2023 1:30 PM CDT Temperature 37.3 C (99.1 F) 12/18/2023 12:19 PM CDT Respiratory Rate 20 12/18/2023 1:30 PM CDT Oxygen Saturation 99% 12/18/2023 1:30 PM CDT Inhaled Oxygen Concentration - - Weight 111.8 kg (246 lb 7.6 oz) 024 12:19 PM CDT Height 172.7 cm (5' 8 ) 11/19/2023 12:5 9 PM CDT Body Mass Index 37.48 11/19/2023 12:59 PM CDT Plan of Treatment Health Maintenance Due Date Last Done Comments Cervical Cancer Screening 1991 Depression Screening 1991 Hepatitis C Screening 1991 Varicella Vaccines (1 of 2 - 13+ 2-dose series) 2004 Regular Well Visit/Exam 18-64 2009 Influenza Vaccine (#1) 2024 DTaP/Tdap/Td Vaccine (4 - Td or Tdap) 04/04/2032 04/04/2022, 12/21/2004, 10/14/1996, Additional history exists Hepatitis B Screening Completed 03/04/1997 , 10/14/1996, 03/12/1995 HPV Vaccines Aged Out No longer eligi ble based on patient's age to complete this topic Pneumococcal vaccine <65 Aged Out No longer eligible based on patient's age to complete [place] [address] [facility] [place] [address] [facility] Care Teams Flash Welding Machine Operator Relationship Specialty Start Date End Date Unknown, Notinfile PCP - General 10/18/23
--- OUTSIDE RECORDS SUMMARY | 2024-07-05 11:29 | XMS_ITS | Referral Summary ---
Author Organization [facility] [address] Address [address] 5th [place] [address] Care Team Providers Care Global Human Resources Director Name Role Phone Unknown, Notinfile Primary Care [...] picking up her blood pressure machine at [facility], so sent a new blood pressure machine [...] the PAP. She was not able to pickle processor the BP cuff previously but is now done with school so will plan to pick it up this week. They are still in the process of moving to [facility] the middle of May but states she will likely continue care at [facility]. She will bring repeat blood pressures to [...] Blood pressure monitor for home prescribed to [employer], and instructions given to take blood pressure [...] 11/19/2023 12:59 PM CDT Plan of Treatment [place] [address] [facility] [employer] [facility] Member Subscriber Plan / Payer (Ef fective 2023-Present) Name:Melissa Menendez Relation to Subscriber:Self Name:Melissa Menendez Payer ID:[id number] (NAIC) Type: [employer]record Address: [address] [facility] [employer] [facility] [employer] [facility] Care Teams Global Human Resources Director Relationship Specialty Start Date End Date Unknown, Notinfile PCP - General 10/18/23
--- OUTSIDE RECORDS SUMMARY | 2024-07-05 11:29 | XMS_ITS | Referral Summary ---
Author Organization [facility] Address [address] [place] [address] Care Team Providers Care Transfer Controller Name Role Phone Unavailable Primary Care Provider Unavailabl e Source Comments [facility],non-owned Affiliates and Associated Physician Practices is amultiple site organization consisting of ambulatory clinics and hospital sitesin [place]. This disclosure is being madepursuant to the Care Everywhere program and may not contain all information available regarding this patient. Last updated 18.[facility] Packet Design Encounters Date Type Department Care Team Description 04/04/2024 11:24 PM CLIENT ADVISOR - 04/05/2024 5:01 AM CLIENT ADVISOR Emergency [facility] EMERGENCY DEPARTMENT [address] [place] [id number] Fall, initial encounter Discharge Disposition: Left Against Medical Advice/Discontinued Care 04/04/2024 Travel from Last 3 Months Allergies No known active allergies Social History Tobacco Use Types Packs/Day Years Used Date Smoking Tobacco: Never Assessed Sex and Gender Information Value Date Recorded Sex Assigned at Not on file Gender Identity Not on file Sexual Orientation Not on file Last Filed Vital Signs Vital Sign Reading Time Taken Comments Blood Pressure 132/101 04/04/2024 11:26 PM CLIENT ADVISOR Pulse 106 04/04/2024 11:26 PM CLIENT ADVISOR Temperature 36.7 C (98 F) 04/04/2024 11:26 PM CLIENT ADVISOR Respiratory Rate 22 04/04/2024 11:26 PM CLIENT ADVISOR Oxygen Saturation 97% 04/04/2024 11:26 PM CLIENT ADVISOR Inhaled Oxygen Concentration - - Weight 115.7 kg (255 lb) 04/04/2024 11:26 PM CLIENT ADVISOR Height 172.7 cm (5' 8 ) 04/04/2024 11:26 PM CLIENT ADVISOR Body Mass Index 38.77 04/04/2024 11:26 PM CLIENT ADVISOR Plan of Treatment Not on file Procedures Procedure Name Priority Date/Time Associated Diagnosis Comments CT ORBITS WO CONTRAST STAT 04/05/2024 1:54 AM CLIENT ADVISOR Fall, initial encounter CT HEAD WO CONTRAST STAT 04/05/2024 1 :54 AM CLIENT ADVISOR Fall, initial encounter COMPREHENSIVE METABOLIC PANEL STAT 04/05/2024 12:13 AM CLIENT ADVISOR CBC W AUTO DIFFERENTIAL STAT 04/05/2024 12:13 AM CLIENT ADVISOR HCG URINE QUALITATIVE STAT 04/05/2024 12:13 AM CLIENT ADVISOR from Last 3 Months Results * CT Orbits Wo Contrast (04/05/2024 1:54 AM CLIENT ADVISOR) Anatomical Region Laterality Modality Head Computed Tomogra phy 04/05/2024 2:06 AM CLIENT ADVISOR Impressions 04/05/2024 7:24 AM CLIENT ADVISOR IMPRESSION: 1.Proptotic globes bilaterally. No orbital fracture or retrobulbar hematoma is identified. > Dictated by Andre Garcia DO (regional vice president surgical sales). ILorena MD have personally reviewed and interpreted this examination/study. > Interpreting Provider: Lorena Cantu MD on 04/05/2024 7:24 AM Narrative 04/05/2024 7:24 AM CLIENT ADVISOR EXAMINATION: CT ORBITS WO CONTRAST DATE/TIME OF EXAM: 04/05/2024 1:55 AM, LOCATION [facility] HISTORY: W19.XXXA: Fall, initial encounter ?orbit fracture, [...] DATE/TIME OF EXAM: 04/05/2024 1:55 AM, LOCATION [facility] HISTORY: W19.XXXA: Fall, initial encounter ?orbit fracture, [...] identified. > Dictated by Andre Garcia DO (regional vice president surgical sales). Lorena Garcia MD have personally reviewed and interpretedthis examination/study. > Interpreting Provider: Lorena Cantu MD on 04/05/2024 7:24 AM Qiana Martin MD CT ORDERABLES * CT Head Wo Contrast (04/05/2024 1:54 AM CLIENT ADVISOR) Anatomical Region Laterality Modality Head Computed Tomogra phy 04/05/2024 1:57 AM CLIENT ADVISOR Impressions 04/05/2024 7:22 AM CLIENT ADVISOR IMPRESSION: 1.No acute intracranial hemorrhage, midline shift, or significant mass effect. > Dictated by Andre Garcia DO (Padding Machine Operator), 04/05/2024 2:05 AM. Lorena Garcia MD have personally reviewed and interpreted this examination/study. > Interpreting Provider: Lorena Cantu MD on 04/05/2024 7:22 AM Narrative 04/05/2024 7:22 AM CLIENT ADVISOR PROCEDURE: CT HEAD WO CONTRAST, DATE/TIME OF EXAM: 04/05/2024 1:55 AM, LOCATION [facility] INDICATION: W19.XXXA: Fall, initial encounter EXAMINATION: Computed [...] DATE/TIME OF EXAM: 04/05/2024 1:55 AM, LOCATION [facility] INDICATION: W19.XXXA: Fall, initial encounter EXAMINATION: Computed [...] effect. > Dictated by Andre Garcia DO (Padding Machine Operator), 04/05/2024 2:05AM. I, Lorena Cantu MD have personally reviewed and interpretedthis examination/study. > Interpreting Provider: Lorena Cantu MD on 04/05/2024 7:22 AM Qiana Martin MD CT ORDERABLES * (ABNORMAL) HCG URINE QUALITATIVE (04/05/2024 12:13 AM CLIENT ADVISOR) [facility] Test Urine Positive(A ) Negative 04/05/2024 12:29 AM [facility] Urine URINE / Unknown Collection / Unknown 04/05/2024 12:13 AM CLIENT ADVISOR 04/05/2024 12:19 AM CLIENT ADVISOR Tong Castaneda MD LAB - URINALYSIS ORD ERABLES [facility] [address] [place] [id number] [phone] * (ABNORMAL) CBC W AUTO DIFFERENTIAL (04/05/2024 12:13 AM CLIENT ADVISOR) [facility] WBC 11.8(H) 4.0 - 10.7 x10E9/L 04/05/2024 12:29 AM [facility] RBC Count 3.86(L) 3.90 - 5.20 x10E12/L 04/05/2024 12:29 AM [facility] Hemoglobin 10.8(L) 11.9 - 15.8 g/dL 04/05/2024 12:29 AM [facility] Hematocrit 32.0(L) 34.8 - 46.1 % 04/05/2024 12:29 AM [facility] MCV 82.9 80.0 - 98.0 fL 04/05/2024 12:29 AM [facility] MCH 28.0 26.7 - 33.6 pg 04/05/2024 12:29 AM [facility] MCHC 33.8 31.7 - 36.3 g/dL 04/05/2024 12:29 AM [facility] RDW-CV 13.1 11.3 - 14.8 % 04/05/2024 12:29 AM [facility] Platelet Count 406 150 - 420 x10E9/L 04/05/2024 12:29 AM [facility] MPV 9.0 7.8 - 11.4 fL 04/05/2024 12:29 AM [facility] Neutrophil % 72.1 41.0 - 74.0 % 04/05/2024 12:29 AM [facility] Lymphocyte % 18.0 17.0 - 47.0 % 04/05/2024 12:29 AM [facility] Monocyte % 8.1 3.0 - 11.0 % 04/05/2024 12:29 AM [facility] Eosinophil % 1.1 0.0 - 7.0 % 04/05/2024 12:29 AM [facility] Basophil % 0.3 0.0 - 1.6 % 04/05/2024 12:29 AM [facility] Immature Granulocytes % 0.4 0.0 - 1.0 % 04/05/2024 12:29 AM [facility] Neutrophil Absolute 8.52(H) 1.60 - 7.50 x10E9/L 04/05/2024 12:29 AM [facility] Lymphocyte Absolute 2.12 1.00 - 4.40 x10E9/L 04/05/2024 12:29 AM [facility] Monocyte Absolute 0.95 0.15 - 1.00 x10E9/L 04/05/2024 12:29 AM [facility] Eosinophil Absolute 0.13 0.00 - 0.60 x10E9/L 04/05/2024 12:29 AM [facility] Basophil Absolute 0.03 0.00 - 0.13 x10E9/L 04/05/2024 12:29 AM [facility] Blood BLOOD SPECIMEN / Unknown Venipuncture / Unknown 04/05/2024 12:13 AM [facility] 04/05/2024 12:21 AM CLIENT ADVISOR Tong Castaneda MD LAB - HEMATOLOGY ORD ERABLES [facility] [address] [place] [address], [facility] [phone] * (ABNORMAL) COMPREHENSIVE METABOLIC PANEL (04/05/2024 12:13 AM [facility]) BUN 6(L) 7 - 26 mg/dL 04/05/2024 12:48 AM [facility] Creatinine 0.59 0.56 - 0.96 mg/dL 04/05/2024 12:48 AM [facility] Sodium 138 136 - 145 mmol/L 04/05/2024 12:48 AM [facility] Potassium 3.6 3.5 - 4.5 mmol/L 04/05/2024 12:48 AM [facility] Chloride 107 98 - 107 mmol/L 04/05/2024 12:48 AM [facility] CO2 23 22 - 29 mmol/L 04/05/2024 12:48 AM [facility] Glucose 89 70 - 99 mg/dL 04/05/2024 12:48 AM [facility] Calcium 9.3 8.4 - 10.2 mg/dL 04/05/2024 12:48 AM [facility] Protein Total 7.5 6.0 - 8.3 g/dL 04/05/2024 12:48 AM [facility] Albumin 3.4 3.4 - 5.0 g/dL 04/05/2024 12:48 AM [facility] Bilirubin Total 0.2 0.2 - 1.2 mg/dL 04/05/2024 12:48 AM [facility] Alkaline Phosphatase 61 40 - 150 U/L 04/05/2024 12:48 AM [facility] ALT 21 5 - 55 U/L 04/05/2024 12:48 AM [facility] AST 18 5 - 34 U/L 04/05/2024 12:48 AM [facility] Anion Gap 8 6 - 16 04/05/2024 12:48 AM [facility] BUN/Creatinine Ratio 10 7 - 23 04/05/2024 12:48 AM [facility] Osmolality Calculated 283 275 - 295 mOsm/kg 04/05/2024 12:48 AM [facility] Albumin/Globulin Ratio 0.8(L) 1.1 - 2.3 04/05/2024 12:48 AM [facility] eGFR by CKD-EPI >90 >=90 mL/min/1.7 3 m2 04/05/2024 12:48 AM [facility] Blood BLOOD SPECIMEN / Unknown Venipuncture / Unknown 04/05/2024 12:13 AM CLIENT ADVISOR 04/05/2024 12:21 AM [facility] Tong Castaneda MD LAB - CHEMISTRY AUBREY TABOR [facility] [address] [place] [address], [facility] [phone] from Last [address] [place] [address] Melissa Menendez Personal/Family Self 1990
--- NOTE | 2024-07-05 11:32 | PC.NURSE ---
Spoke with Rosemarie in OB who states they will come over to monitor baby.
--- NOTE | 2024-07-05 11:40 | ED_ITS ---
HPI - General Adult General Chief complaint: Abdominal Pain Stated complaint: abd pain, vomiting is 7 months Time Seen by Provider: 07/05/24 11:35 History of Present Illness HPI narrative: 34-year-old female presents emergency department for evaluation for worsening abdominal pain. Patient is approximately 7 months . Patient was recently told she does have influenza. Patient reports approximately 30 minutes ago she had intense worsening lower and mid abdominal pain. Patient denies any vaginal bleeding denies any loss of vaginal fluid. Patient is and distress upon arrival to the emergency department secondary to her abdominal pain. Labs were ordered IV was established. Related Data Allergies Allergy/AdvReac Type Severity Reaction Status Date / Time No Known Allergies Allergy Verified 12/25/23 15:44 Review of Systems 2 Review of Systems: All systems reviewed & are unremarkable except as noted in HPI and below Exam 2 Narrative: APPEARANCE: Uncomfortable secondary to pain HEAD: normocephalic, atraumatic. EYES: PERRLA/EOMI, conjunctivae clear. NOSE: Normal no drainage EARS:TMS clear with good light reflex. THROAT: Pharynx clear, no exudate. NECK: Supple. No adenopathy, no masses. RESPIRATORY: Airway patent, respirations nonlabored. Clear to auscultation bilaterally, no rales, rhonchi, wheezing. CARDIOVASCULAR: Regular rate and rhythm without murmurs rubs or gallops. ABDOMINAL: Gravid abdomen with tenderness to palpable uterus. MUSCULOSKELETAL: Moves all extremities. Strength/ROM intact, No edema, No calf tenderness. NEURO: Alert. Cranial nerves II through XII intact. Good gait. Good coordination SKIN: Warm, dry. Normal Color Course Vital Signs Vital signs: Vital Signs Pulse Rate 91 07/05/24 11:41 Respiratory Rate 07/05/24 11:41 Blood Pressure 151/108 H 07/05/24 11:41 Pulse Oximetry 100 07/05/24 11:41 Pulse Rate 62 07/05/24 16:44 Respiratory Rate 19 07/05/24 11:41 Blood Pressure 120/66 07/05/24 16:44 Pulse Oximetry 100 07/05/24 11:41 Medical Decision Making MDM Narrative Medical decision making narrative: 34-year-old female that is some leuks present presented emergency department for evaluation for urine cramping and abdominal pain. Patient will be transferred to OB [facility]. Patient family were updated on the plan for IV labs and transfer over to OB, all questions concerns were addressed. Vital Signs Vital Signs: Vital Signs Pulse Rate 91 07/05/24 11:41 Respiratory Rate 19 07/05/24 11:41 Blood Pressure 151/108 H 07/05/24 11:41 Pulse Oximetry 100 07/05/24 11:41 Pulse Rate 62 07/05/24 16:44 Respiratory Rate 19 07/05/24 11:41 Blood Pressure 120/66 07/05/24 16:44 Pulse Oximetry 100 07/05/24 11:41 Lab Data 07/05/24 11:42 07/05/24 11:42 Labs: Lab Results 07/05/24 Range/Units 11:42 WBC 11.8 H (4.5-10.0) K/mm3 RBC 3.78 L (4.2-5.4) M/mm3 Hgb 10.7 L (12.0-15.0) g/dL Hct 31.4 L (37.0-47.0) % MCV 83.1 (80-100) fl MCH 28.3 (26-34) pg MCHC 34.1 (32-36) g/dl RDW 13.4 (11.5-14.5) % Plt Count 422 H (150-375) k/mm3 MPV 9.0 (7.4-10.4) fl Immature Gran % (Auto) 0.6 H (0-0.5) % Neut % (Auto) 77.8 H (45.5-73.1) % Lymph % (Auto) 11.9 L (18.3-44.2) % [place] % (Auto) 9.3 H (2.6-8.5) % Eos % (Auto) 0.1 (0-4.4) % Baso % (Auto) 0.3 (0.2-1.2) % Lymph # (Auto) 1.40 (0.9-3.2) K/mm3 [place] # (Auto) 1.1 H (0.1-0.6) K/mm3 Eos # (Auto) 0.0 (0-0.3) K/mm3 Baso # (Auto) 0.0 (0.0-0.1) K/mm3 Abs Immat Gran (auto) 0.07 H (0.00-0.031) K/mm3 Absolute Neuts (auto) 9.2 H (1.3-6.7) K/mm3 Absolute Nucleated RBC 0.000 (0.0-0.012) K/mm3 Nucleated RBC % 0.0 (0.0-0.2) % PT 13.6 (11.1-14.7) Seconds INR 1.0 APTT 27.1 (22.3-36.8) Seconds Sodium 136 L (137-145) mmol/L Potassium 3.1 L (3.4-5.0) mmol/L Chloride 103 (98-107) mmol/L Carbon Dioxide 22 (22-30) mmol/L Anion Gap 11 (4-12) mmol/L BUN 6 L (7-17) mg/dL Creatinine 0.43 L (0.7-1.0) mg/dL Estim Creat Clear Calc 203 ml/min Estimated GFR > 60 (59 - ) Glucose 98 (65-110) mg/dL Calcium 9.5 (8.4-10.2) mg/dL Total Bilirubin 1.1 (0.2-1.3) mg/dL AST 37 H (14-36) U/L ALT 32 (6-35) U/L Alkaline Phosphatase 108 (38-126) U/L Total Protein 8.0 (6.3-8.2) g/dL Albumin 4.0 (3.5-5.1) g/dL Lipase 80 (23-300) U/L Discharge Plan Discharge Clinical Impression: Abdominal pain affecting Patient Disposition: Home, Self-Care Condition: Stable
[2024-07-05 12:00] LABS: Basophils Percent Auto 0.3 % (0.2-1.2); Eosinophils Percent Auto 0.1 % (0-4.4); Hematocrit 31.4 % (37.0-47.0); Hemoglobin 10.7 g/dL (12.0-15.0); Immature Granulocyte Absolute 0.07 K/mm3 (0.00-0.031); Immature Granulocyte Percent A 0.6 % (0-0.5); Lymphocytes Percent Auto 11.9 % (18.3-44.2); Mean Corpuscular HGB Conc 34.1 g/dl (32-36); Mean Corpuscular Hemoglobin 28.3 pg (26-34); Mean Corpuscular Volume 83.1 fl (80-100); Monocytes Absolute Auto 1.1 K/mm3 (0.1-0.6); Monocytes Percent Auto 9.3 % (2.6-8.5); Neutrophils Absolute Auto 9.2 K/mm3 (1.3-6.7); Neutrophils Percent Auto 77.8 % (45.5-73.1); Platelet Count Result 422 k/mm3 (150-375); Red Blood Count 3.78 M/mm3 (4.2-5.4); Red Cell Distribution Width 13.4 % (11.5-14.5); White Blood Count 11.8 K/mm3 (4.5-10.0)
[2024-07-05 12:06] LABS: Alanine Aminotransferase 32 U/L (6-35); Alkaline Phosphatase 108 U/L (38-126); Anion Gap 11 mmol/L (4-12); Aspartate Amino Transferase 37 U/L (14-36); Bilirubin,Total 1.1 mg/dL (0.2-1.3); Blood Urea Nitrogen 6 mg/dL (7-17); Calcium 9.5 mg/dL (8.4-10.2); Carbon Dioxide 22 mmol/L (22-30); Chloride 103 mmol/L (98-107); Estimated CRCL calculation 203 ml/min; Estimated Glomerular Filt Rate > 60; Glucose 98 mg/dL (65-110); Potassium 3.1 mmol/L (3.4-5.0); Sodium 136 mmol/L (137-145)
[2024-07-05 12:16] LABS: Prothrombin Time 13.6 Seconds (11.1-14.7)
[2024-07-05 12:17] LABS: Partial Thromboplastin Time 27.1 Seconds (22.3-36.8)
[2024-07-05] MEDS: LACTATED RINGERS 1,000 ML 250 ML IV CONT (12:49)
[2024-07-05] MEDS: MORPHINE SULFATE (*CRX) 2 MG/ML INJ IV PUSH (12:50)
[2024-07-05 12:53] LABS: Lipase 80 U/L (23-300)
--- NOTE | 2024-07-05 13:01 | LDADM ---
This patient, Melissa Menendez, was admitted to [facility] on 07/05/24 at 11:46. Plans for labor, pain management and were discussed with patient. Patient/family oriented to hospital policies and general routines including ID bracelet, bed and alarms, visiting hours, pain management, procedures, bathroom and other care routines, personal items, smoking policy, room service/diet and guest tray routines, infant security routines, and visiting hours. Patient/Family are encouraged to report perceived risks to care and to ask questions if they do not understand what they are told or what they should do. See OBIX for further documentation. Pt. received from ED via wheelchair with reports of vomiting X3 days and abdominal pain. Pt. reports she was here yesterday, received some IVF's and nausea meds and was DC'd home. She reports pain and vomiting hit her today around 0900. She states her pain in 9/10 in her RUQ, and it wraps around the top of her abdomen and upper back. Abdomen soft upon palpation. Pt. reports + movement and denies vaginal bleeding or leaking of fluid.
[2024-07-05] MEDS: ONDANSETRON INJ 4 MG/2 ML VIAL IV PUSH (15:23)
[2024-07-05] MEDS: oxyCODONE/ACETAMINOPHEN (*CRX) 5-325 MG TABLET 1 TABLET PO (16:39)
[2024-07-05] MEDS: ONDANSETRON HCL ODT 4 MG TABLET PO (23:25)
--- NOTE | 2024-07-07 13:56 | PM.OBTRLD ---
OB - Triage/Final Diagnosis Visit Information Comments/Additional reasons for admission: I have assessed the risk for this patient, Melissa Menendez, and determined that she would benefit from observation care. Evaluation Laboratory results: Laboratory Tests 07/05/24 11:42 WBC 11.8 H RBC 3.78 L Hgb 10.7 L Hct 31.4 L MCV 83.1 MCH 28.3 MCHC 34.1 RDW 13.4 Plt Count 422 H MPV 9.0 Immature Gran % (Auto) 0.6 H Neut % (Auto) 77.8 H Lymph % (Auto) 11.9 L [place] % (Auto) 9.3 H Eos % (Auto) 0.1 Baso % (Auto) 0.3 Lymph # (Auto) 1.40 [place] # (Auto) 1.1 H Eos # (Auto) 0.0 Baso # (Auto) 0.0 Abs Immat Gran (auto) 0.07 H Absolute Neuts (auto) 9.2 H Absolute Nucleated RBC 0.000 Nucleated RBC % 0.0 PT 13.6 INR 1.0 APTT 27.1 Sodium 136 L Potassium 3.1 L Chloride 103 Carbon Dioxide 22 Anion Gap 11 BUN 6 L Creatinine 0.43 L Estim Creat Clear Calc 203 Estimated GFR > 60 Glucose 98 Calcium 9.5 Total Bilirubin 1.1 AST 37 H ALT 32 Alkaline Phosphatase 108 Total Protein 8.0 Albumin 4.0 Lipase 80 Final Diagnosis (1) Gall stones: Code(s): K80.20 - Calculus of gallbladder without cholecystitis without obstruction Status: Acute
== END 2024-07-06 01:45 | disposition home or self-care (01) ==
LOC: ANHED 11:43 → ANHOBPP 11:51
PROVIDERS: Admitting Provider Obstetrics & Gynecology; Emergency Provider Emergency Medicine; Visit Provider Obstetrics & Gynecology
DX: O99.613 Diseases of the digestive system complicating pregnancy, third trimester (principal); K80.20 Calculus of gallbladder without cholecystitis without obstruction; Z3A.31 31 weeks gestation of pregnancy
CPT/HCPCS: 36415; 76705; 80053; 83690; 85025; 85610; 85730; 96374; 96375; 99285; A9270; G0378; J2270; J2405; J7120